=== PATIENT | male | born 1990 | race Caucasian/White ===

== ENCOUNTER 2020-01-05 11:01 | Emergency (ER) | payer BC ==
--- NOTE | 2020-01-05 11:15 | Emergency Department Record ---
History of Present Illness - General Chief Complaint: Chest Pain Stated Complaint: Chest Pain Time Seen by Provider: 01/05/20 11:12 Source: Patient Mode of Arrival: Ambulatory Limitations: No limitations - History of Present Illness Initial Comments: The patient is here due to not feeling well for 2 days. He has had a recent ST and nasal congestion and mild cough and then yesterday developed bilateral anterior lower chest pain. The pain is sharp and stabbing and worse with breathing, bending and twisting. The patient does feel mildly SOB at times but denies any worsening cough, or any fever, back pain, or HOYT. The patient has no cardiac risk factors but may have a hx of mild valvular heart dz. He also denies any CP with exertion. MD Complaint: Chest pain Onset/Timin -: Days(s) Severity: Moderate Severity scale (1-10): 5 Quality: Aching, Heaviness Consistency: Constant Improves With: Nothing Treatments Prior to Arrival: None - Related Data Previous Rx's Medication Instructions Recorded Albuterol Sulfate [Proair Hfa] 2 puff IH QID PRN #1 inhaler 01/05/20 Prednisone [Prednisone 20Mg] 40 mg PO DAILY #10 tab 01/05/20 Allergies Allergy/AdvReac Type Severity Reaction Status Date / Time No Known Allergies Allergy HYPERSENSIT Verified 01/05/20 11:12 IVITY Travel/Exposure Screening - Travel/Exposure Within Last 30 Days Have you traveled within the last 30 days?: No - Travel/Exposure Within Last Year Have you traveled outside the [place] in the last year?: No - Additonal Travel/Exposure Details Have you been exposed to anyone with a communicable illness?: No - Travel Symptoms Symptom Screening: None Review of Systems Constitutional: Denies: Chills, Fever Eyes: Denies: Eye discharge ENT: Denies: Congestion Respiratory: Denies: Cough, Dyspnea Cardiovascular: Reports: Chest pain. Denies: Dyspnea on exertion Endocrine: Reports: Fatigue Gastrointestinal: Denies: Nausea Genitourinary: Denies: Dysuria Musculoskeletal: Denies: Arthralgia Past Medical History - SOCIAL HISTORY Smoking Status: Never smoker Alcohol Use: None Drug Use: Rare Drug Use Detail:: Marijuana - RESPIRATORY Hx Respiratory Disorders: Yes Hx Asthma: Yes Hx Pneumonia: Yes - CARDIOVASCULAR Hx Cardio Disorders: Yes Comment:: valvular disease - NEURO Hx Neuro Disorders: No - GI Hx GI Disorders: Yes Hx Abdominal Pain: Yes Hx Reflux: Yes - Hx Genitourinary Disorders: Yes - ENDOCRINE Hx Endocrine Disorders: No Hx Diabetes: No Hx Thyroid Disease: No - MUSCULOSKELETAL Hx Musculoskeletal Disorders: No - PSYCH Hx Psych Problems: No - HEMATOLOGY/ONCOLOGY Hx Hematology/Oncology Disorders: No Family Medical History Any Significant Family History?: Yes Family Hx Comment (NOT TO BE USED IN PLACE OF ITEMS BELOW): grandfather polio Hx Diabetes: Grandparents Physical Exam - General General Appearance: Alert, Oriented x3, Cooperative, No acute distress - Head Head exam: Atraumatic, Normocephalic, Normal inspection - Eye Eye exam: Normal appearance, PERRL, EOMI - ENT Throat exam: Normal inspection. negative: Tonsillar erythema, Tonsillar exudate - Neck Neck exam: Normal inspection, Full ROM. negative: Tenderness - Respiratory Respiratory exam: Normal lung sounds bilaterally. negative: Accessory muscle use, Chest wall tenderness, Decreased breath sounds, Respiratory distress, Rhonchi, Stridor, Wheezes - Cardiovascular Cardiovascular Exam: Regular rate, Normal rhythm, Normal heart sounds, Systolic murmur (1-2/6 ELISEO.) - GI/Abdominal GI/Abdominal exam: Soft, Normal bowel sounds. negative: Tenderness - Extremities Extremities exam: Normal inspection, Full ROM, Normal capillary refill. negative: Calf tenderness, Pedal edema, Tenderness Course Vital Signs 01/05/20 11:02 Temperature 97.7 F Pulse Rate 106 H Respiratory 18 Rate Blood Pressure 146/94 Pulse Ox 98 - Reevaluation(s) Reevaluation #1: The patient is doing better and feels like he can take a deeper breath after the breathing tx. I strongly doubt any serious cardiac or pulmonary issues due to the fact the patient's PE is WNL's except for a mild heart murmur which is chronic. He also has had a normal EKG, CXR and lab evaluation. Due to the patient's HEART Score of 0 I do feel he is stable for discharge. He is to see his PCP this week and have a cardiac echo obtained as an outpatient. 01/05/20 12:44 Medical Decision Making - Data Complexity MDM Data: Labs Ordered and/or Reviewed, X-Ray Ordered and/or Reviewed, EKG Ordered and/or Reviewed - Lab Data Result diagrams: 01/05/20 11:30 01/05/20 11:30 - EKG Data -: EKG Interpreted by Me EKG: No Acute Changes, Normal EKG - Radiology Data Radiology results: Report reviewed (CXR: Neg.) Disposition Disposition: Discharge Clinical Impression: Chest pain, atypical Disposition: Home, Self-Care Condition: (2) Stable Instructions: Pleurisy (ED) Additional Instructions: Please use Tylenol for pain and use the Albuterol and Prednisone as directed. Please see your family doctor for recheck if not better. Please see Dr. Mullins in [facility] as directed due to the history of having the heart murmur. Return to the ER for any worsening symptoms. Prescriptions: Prednisone [Prednisone 20Mg] 40 mg PO DAILY #10 tab Albuterol Sulfate [Proair Hfa] 2 puff IH QID PRN #1 inhaler PRN Reason: Cough And Difficulty Breathing Referrals: [facility] [place] [facility] [Provider Group] Forms: Patient Portal Access Time of Disposition: 12:51 Quality - Quality Measures Quality Measures: N/A - Blood Pressure Screening View Details: Yes Does Patient Have Any of the Following: No Blood Pressure Classification: Hypertensive Reading Systolic Measurement: 146 Diastolic Measurement: 94 Screening for High Blood Pressure: < First Hypertensive BP, F/U Documented > [G8950] First Hypertensive Follow-up Interventions: Referral to alternative/primary care provider.
[2020-01-05] MEDS ORDERED: ALBUTEROL SULFATE (0.083%) 2.5 MG/3 ML NEB INH ONE (11:27)
[2020-01-05 11:35] LABS: INFLUENZA A NEGATIVE (NEGATIVE); INFLUENZA B NEGATIVE (NEGATIVE)
[2020-01-05 11:35] LABS: ABSOLUTE NEUTROPHIL COUNT 5.71; BASO % 0.1 % (0-6); EOS % 1.3 % (0-6); GRAN % 71.6 % (47-80); HEMATOCRIT 44.9 % (42.0-52.0); HEMOGLOBIN 15.4 gm/dl (14.0-18.0); LYMPH % 15.2 % (16-45); MEAN CORPUSCULAR HEMOGLOBIN 30.9 pg (27-33); MEAN CORPUSCULAR HGB CONC 34.3 g/dl (32-36); MEAN PLATELET VOLUME 10.1 fl (7.4-10.4); MONO % 11.8 % (0-9); PLATELET COUNT 267 K/uL (130-400); RED BLOOD COUNT 4.99 M/uL (4.40-5.70); RED CELL DISTRIBUTION WIDTH 12.8 % (11.5-14.5)
[2020-01-05 11:48] LABS: BLOOD UREA NITROGEN 8 mg/dL (6-20); CREATININE 0.8 mg/dL (0.7-1.2); EST GLOMERULAR FILTRATION RATE > 60 mL/min; PARTIAL THROMBOPLASTIN TIME 28.2 SECONDS (24.5-39.1); PROTHROMBIN TIME (PATIENT) 10.4 SECONDS (9.5-12.1)
[2020-01-05 11:49] LABS: TOTAL PROTEIN 7.5 g/dL (6.6-8.7)
[2020-01-05 11:51] LABS: GLUCOSE,RANDOM 94 mg/dL (74-109)
[2020-01-05 11:54] LABS: ALB/GLOB RATIO 1.6 (1.1-1.8); ALBUMIN 4.6 g/dL (4.0-5.0); ALKALINE PHOSPHATASE 130 U/L (40-129); ALT/SGPT 38 U/L (<41); AST/SGOT 23 U/L (10.0-50.0)
[2020-01-05] MEDS ORDERED: KETOROLAC 30 MG/ML VIAL IVP ONE (12:01)
--- NOTE | 2020-01-05 12:36 | RADIOLOGY REPORT ---
EXAMINATION: Two View Chest Radiographs EXAM DATE: 01/05/2020 12:01 PM TECHNIQUE: Frontal and lateral views INDICATION: cough COMPARISON: None ENCOUNTER: Not applicable FINDINGS: The heart, mediastinum, and pulmonary vasculature are normal. No lung consolidation or pleural effu sions are present. IMPRESSION: No acute process. Dictated by: Chano Coon DO on 01/05/2020 12:34 PM. .
== END 2020-01-05 13:00 | disposition home or self-care (01) ==
LOC: ER 11:01
DX: R07.89 Other chest pain (principal); R06.02 Shortness of breath; R05 Cough; R53.83 Other fatigue
CPT/HCPCS: 71046; 80053; 84484; 85025; 85379; 85610; 85651; 85730; 86140; 87400; 93005; 93010; 94640; 99284; J7613